=== PATIENT | male | born 1955 | race Caucasian/White ===

== ENCOUNTER → 2018-12-24 | Outpatient (CLI) | payer OTHER ==
--- NOTE | 2018-12-24 14:07 | RADRPT ---
Echocardiogram Report Patient Name: STEVEN CONKLINPatient ID: [id number] : 1955 (63y 4m)Study Date: 12/24/2018 2:46:52 PM Gender: MAccession #: [id number] Tech: Stoney Gray RDCS Location: EKG Ref.Physician: BETTYE GARNER Height(Cm): BSA: Weight(Kg): Quality: AdequateOrder Physician: BETTYE GARNER Account #: Procedures: Echocardiographic Report: Transthoracic echocardiogram with complete 2D, M-Mode, and doppler examination. Indications: Bradycardia. Measurements: 2D/M Mode Doppler Measurement Value Normal Range Measurement Value Normal Range LVIDd 2D 5.5 [ 4.2 - 5.8 ] cm AV Peak Vipul 1.6 [ 100.0 - 170.0 ] cm/sec LVIDs 2D 3.3 [ 2.5 - 4.0 ] cm AV Peak PG 10.0 [ 2.0 - 9.0 ] mmHg LVPWd 2D 1.1 [ 0.6 - 1.0 ] cm LVOT Peak Vipul 1.2 [ 70.0 - 110.0 ] cm/sec IVSd 2D 1.0 [ 0.6 - 1.0 ] cm LVOT Peak PG 6.0 [ 2.0 - 6.0 ] mmHg IVS/LVPW 2D 0.9 ratio MV E Peak Vipul 0.5 [ 60.0 - 130.0 ] cm/sec AoR Diam 2D 3.0 [ 2.6 - 3.4 ] cm MV A Peak Vipul 0.6 [ 100.0 - 120.0 ] cm/sec LA/Ao 2D 1 ratio MV E/A 0.8 [ 0.8 - 1.5 ] ratio LA Dimen 2D 4.0 [ 3.0 - 4.0 ] cm MV Decel Time 243 [ 104 - 258 ] msec Lat E` Vipul 0.1 [ 10.0 - 15.0 ] cm/sec MV E/A 0.8 [ 0.8 - 1.5 ] ratio TR Peak Vipul 2.7 [ 100.0 - 280.0 ] cm/sec TR Peak PG 29.0 mmHg RVSP 32.0 [ 10.0 - 36.0 ] mmHg RA Pressure 3.0 mmHg Findings: Left Ventricle: Normal left ventricular systolic function. Normal left ventricular cavity size. Mild concentric left ventricular hypertrophy. Ejection fraction is visually estimated at 55-60 %. Tissue Doppler/Mitral Doppler indices are consistent with impaired relaxation (Stage I diastolic dysfunction). Right Ventricle: Normal right ventricular size. Normal right ventricular systolic function. Left Atrium: Upper limit of normal left atrial size. Right Atrium: There is mild enlargement of right atrium. Mitral Valve: Normal appearance and function of the mitral valve with trace physiologic regurgitation. Aortic Valve: No significant aortic stenosis or insufficiency. Aortic cusps appear mildly calcified. Tricuspid Valve: Normal appearance of the tricuspid valve. Estimated peak PA systolic pressure 32 mmHg. There is trace tricuspid regurgitation. Pulmonic Valve: Pulmonic valve not well visualized. Pericardium: Normal pericardium with no significant pericardial effusion. Aorta: Normal aortic root. IVC: Normal size and normal respiratory collapse consistent with normal right atrial pressure. Conclusions: Normal left ventricular systolic function. Normal left ventricular cavity size. Mild concentric left ventricular hypertrophy. Ejection fraction is visually estimated at 55 %. Tissue Doppler/Mitral Doppler indices are consistent with impaired relaxation (Stage I diastolic dysfunction). Normal appearance and function of the mitral valve with trace physiologic regurgitation. No significant aortic stenosis or insufficiency. Aortic cusps appear mildly calcified. Normal appearance of the tricuspid valve. Estimated peak PA systolic pressure 32 mmHg. There is trace tricuspid regurgitation. Electronically Signed By: Smith Casey 2018-12-24 14:06:24 PDT
== END | disposition home or self-care (01) ==
LOC: EKG 10:19
PROVIDERS: ATTEND Internal Medicine Clinical Cardiac Electrophysiology
DX: I10 Essential (primary) hypertension (principal); R00.1 Bradycardia, unspecified
CPT/HCPCS: 93306